=== PATIENT | female | born 1935 | race Caucasian/White ===

== ENCOUNTER 2022-06-11 16:48 | Inpatient (IN) | payer MEDICARE, OTHER ==
[~2022-06-11] VITALS: Ht 165.1 cm; Wt 81.6 kg
[2022-06-11 17:34] LABS: BASOPHILS % (AUTO) 0.3 % (0-1); EOSINOPHILS % (AUTO) 0.1 % (0-6); HEMATOCRIT 35.9 % (35.0-45.0); HEMOGLOBIN 11.8 g/dl (12.0-16.0); LYMPHOCYTES # (AUTO) 2.1 X10'3 (1.1-4.8); LYMPHOCYTES % (AUTO) 17.1 % (21-51); MEAN CORPUSCULAR HEMOGLOBIN 28.4 PG (27.0-31.0); MEAN CORPUSCULAR HGB CONC 32.9 g/dL (33.0-36.5); MEAN CORPUSCULAR VOLUME 86.4 FL (78-98); MEAN PLATELET VOLUME 8.6 FL (7.4-10.4); MONOCYTES # (AUTO) 1.2 X10'3 (0-0.9); MONOCYTES % (AUTO) 9.5 % (2-12); NEUTROPHILS # (AUTO) 9.2 X10'3 (1.8-7.7); PLATELET COUNT 230 X10'3 (140-440); RED BLOOD COUNT 4.16 X10'6 (4.20-5.60); RED CELL DISTRIBUTION WIDTH 14.4 % (11.5-14.5); WHITE BLOOD COUNT 12.6 X10'3 (4.5-11.0)
[2022-06-11 17:47] LABS: APTT 31 SECONDS (22-32)
[2022-06-11 17:50] LABS: ALANINE AMINOTRANSFERASE 62 U/L (12-78); ALBUMIN 3.3 G/DL (3.4-5.0); ALBUMIN/GLOBULIN RATIO 0.8 (1.1-1.5); ALKALINE PHOSPHATASE 89 IU/L (46-116); ANION GAP 10 (8-16); ASPARTATE AMINO TRANSFERASE 124 U/L (10-37); BILIRUBIN,TOTAL 0.6 MG/DL (0.1-1.0); BLOOD UREA NITROGEN 20 MG/DL (7-18); BUN/CREATININE RATIO 18.3 (10.0-20.0); CALCIUM 9.1 MG/DL (8.5-10.1); CHLORIDE 99 MMOL/L (99-107); CREATININE 1.09 MG/DL (0.40-0.90); GLUCOSE 147 MG/DL (70-104); SODIUM 134 MMOL/L (135-145); TOTAL CARBON DIOXIDE 25.2 MMOL/L (24-32); TOTAL PROTEIN 7.2 G/DL (6.4-8.2); eGFR 48 ML/MIN
--- NOTE | 2022-06-11 17:51 | NUR ---
PT ARRIVED WITH HEPARIN GTT, ORDERS FROM DR MALDONADO TO CONTINUE. WHEN THIS RN CAME BACK INTO THE PTS ROOM, PUMP HAD BEEN REMOVED AND PT HAD BEEN TAKEN OFF GTT. NOTIFIED DR MALDONADO WHO WILL PLACE ORDERS TO RESTART HEPARIN GTT
[2022-06-11] MEDS ORDERED: heparin 10,000 units/1 ML INJ IV PRN (17:55)
[2022-06-11] MEDS ORDERED: heparin 10,000 units/1 ML INJ IV ONE ×2 (17:55→18:05)
[2022-06-11] MEDS ORDERED: heparin 25,000 UNIT/250ml bag 250 ML IV PRN (17:55)
[2022-06-11 17:57] LABS: MAGNESIUM 1.5 MG/DL (1.5-2.4)
[2022-06-11] MEDS ORDERED: METF-436 PO (19:34)
[2022-06-11] MEDS ORDERED: ASPI-611 PO (19:34)
[2022-06-11] MEDS ORDERED: METO-395 PO (19:34)
[2022-06-11] MEDS ORDERED: OMEP40CA21 PO (19:34)
[2022-06-11] MEDS ORDERED: LISI40TA13 PO (19:34)
[2022-06-11] MEDS ORDERED: SITA25TA3 PO (19:34)
[2022-06-11] MEDS ORDERED: ATOR40TA71 PO (19:34)
[2022-06-11] MEDS ORDERED: AMLO2.5T2 PO (19:34)
[2022-06-11] MEDS ORDERED: temazepam 15mg capsule PO PRN (21:00)
[2022-06-11] MEDS ORDERED: mag hydrox/Alum hydrox/simeth 30ml oral suspension PO PRN (21:40)
[2022-06-11] MEDS ORDERED: normal saline 1000ml 1,000 ML IV SCH (21:40)
[2022-06-11] MEDS ORDERED: diphenhydrAMINE 50 mg/ml inj IV PRN (21:40)
[2022-06-11] MEDS ORDERED: morphine 2 MG/ML inj. syringe IV PRN ×2 (21:40)
[2022-06-11] MEDS ORDERED: HYDROcodone/acetaminophen 10/325mg tab PO PRN (21:40)
[2022-06-11] MEDS ORDERED: magnesium hydroxide 30ml (MOM) UD suspension PO PRN (21:40)
[2022-06-11] MEDS ORDERED: HYDROcodone/acetaminophen 5mg/325mg tablet PO PRN (21:40)
[2022-06-11] MEDS ORDERED: ondansetron/PF 4mg/2ml inj IV PRN (21:40)
[2022-06-11] MEDS ORDERED: acetaminophen 650mg rectal suppository RC PRN (21:40)
[2022-06-11] MEDS ORDERED: ondansetron 4mg rapidly disintigrating tab PO PRN (21:40)
[2022-06-11] MEDS ORDERED: acetaminophen 325mg tablet PO PRN ×2 (21:40)
[2022-06-11] MEDS ORDERED: bisacodyl 10mg suppository rectal RC PRN (21:40)
[2022-06-11] MEDS ORDERED: diphenhydrAMINE 25mg capsule PO PRN (21:40)
[2022-06-11] MEDS ORDERED: MESSAGE TO PHARMACY PO ONE (21:55)
[2022-06-11] MEDS ORDERED: insulin Lispro (HumaLOG) vial - multi-dose SQ SCH (21:55)
[2022-06-11] MEDS ORDERED: DEXTROSE 15 GM of carb/4 tabs (each vial/BOTTLE has 4 tablets) PO PRN ×2 (21:55)
[2022-06-11] MEDS ORDERED: dextrose 50%-water 50ml dispensing syringe IV PRN ×2 (21:55)
[2022-06-11] MEDS ORDERED: glucagon, human recombinant 1mg kit SUBCUT PRN (21:55)
[2022-06-11 22:16] LABS: D-DIMER 1.05 MG/L FEU (0-0.50)
[2022-06-11 22:17] LABS: HEMOGLOBIN A1C 6.8 % (4.5-6.2)
[2022-06-11 22:24] LABS: PHOSPHORUS 3.8 MG/DL (2.3-4.5)
--- NOTE | 2022-06-11 23:54 | NUR ---
Patient placed on hospital bed for comfort.
[2022-06-12] VITALS (11 sets, daily range): BP systolic 92–110; BP diastolic 45–77
[2022-06-12 01:41] LABS: APTT 52 SECONDS (22-32)
[2022-06-12 03:37] LABS: BASOPHILS # (AUTO) 0.1 X10'3 (0-0.2); BASOPHILS % (AUTO) 0.6 % (0-1); EOSINOPHILS % (AUTO) 0.3 % (0-6); HEMATOCRIT 32.3 % (35.0-45.0); HEMOGLOBIN 10.9 g/dl (12.0-16.0); LYMPHOCYTES % (AUTO) 22.1 % (21-51); MEAN CORPUSCULAR HEMOGLOBIN 28.8 PG (27.0-31.0); MEAN CORPUSCULAR HGB CONC 33.6 g/dL (33.0-36.5); MEAN CORPUSCULAR VOLUME 85.5 FL (78-98); MEAN PLATELET VOLUME 8.8 FL (7.4-10.4); MONOCYTES # (AUTO) 0.9 X10'3 (0-0.9); MONOCYTES % (AUTO) 10.2 % (2-12); NEUTROPHILS % (AUTO) 66.8 % (42-75); PLATELET COUNT 203 X10'3 (140-440); RED BLOOD COUNT 3.78 X10'6 (4.20-5.60)
[2022-06-12 03:50] LABS: ALANINE AMINOTRANSFERASE 51 U/L (12-78); ALBUMIN 2.8 G/DL (3.4-5.0); ALBUMIN/GLOBULIN RATIO 0.8 (1.1-1.5); ALKALINE PHOSPHATASE 76 IU/L (46-116); ANION GAP 7 (8-16); ASPARTATE AMINO TRANSFERASE 99 U/L (10-37); BILIRUBIN,TOTAL 0.6 MG/DL (0.1-1.0); BLOOD UREA NITROGEN 17 MG/DL (7-18); CALCIUM 8.6 MG/DL (8.5-10.1); CHLORIDE 102 MMOL/L (99-107); CHOLESTEROL 114 MG/DL (0-200); CREATININE 1.06 MG/DL (0.40-0.90); GLUCOSE 136 MG/DL (70-104); HDL CHOLESTEROL 56 MG/DL (35-60); LDL CHOLESTEROL 47 MG/DL (50-100); POTASSIUM 3.6 MMOL/L (3.5-5.1); SODIUM 135 MMOL/L (135-145); TOTAL CARBON DIOXIDE 25.9 MMOL/L (24-32); TOTAL PROTEIN 6.3 G/DL (6.4-8.2); TRIGLYCERIDES 79 MG/DL (20-135); eGFR 49 ML/MIN
--- NOTE | 2022-06-12 07:36 | NUR ---
REPORT GIVEN TO ROCIO KWOK
[2022-06-12] MEDS: pantoprazole 40mg Tablet.DR PO SCH (07:58)
[2022-06-12] MEDS: docusate sod 100mg capsule PO SCH ×2 (07:58→19:21)
[2022-06-12] MEDS: metoprolol succinate 25mg (24-HOUR) SR. Tablet PO SCH (07:59)
[2022-06-12] MEDS: atorvastatin 20mg tablet PO SCH (07:59)
[2022-06-12] MEDS: aspirin 81mg, enteric-coated 1 TAB TABLET.DR PO SCH (08:00)
[2022-06-12] MEDS ORDERED: amLODIPine 2.5mg tablet PO SCH (08:00)
[2022-06-12] MEDS: lisinopril 20mg tablet PO SCH (09:13)
[2022-06-12 10:43] LABS: APTT 49 SECONDS (22-32)
[2022-06-12] MEDS ORDERED: nitroGLYCERIN-Tridil 50MG/D5W 250 ML IV ONE (10:43)
[2022-06-12] MEDS ORDERED: verapamil 2.5 mg/ml inj IV ONE (10:43)
[2022-06-12] MEDS ORDERED: LIDOcaine 1% (10mg/ml) 2ml vial ONE (10:43)
[2022-06-12] MEDS ORDERED: iohexol 350MG/ML 100ml bottle IV ONE (10:43)
[2022-06-12] MEDS ORDERED: midazolam 1 mg/ML 2ml injection ONE (10:43)
[2022-06-12] MEDS ORDERED: heparin 1,000unit/ml 10ml vial 10 ML ONE (10:43)
[2022-06-12] MEDS ORDERED: fentaNYL/PF 50MCG/1 ML 2ML syringe ONE (10:43)
--- NOTE | 2022-06-12 10:55 | NUR ---
Pt back from laboratory engineer, Arterial band in place. Pt no distress. Lunch provided. Call light in reach.
[2022-06-12] MEDS ORDERED: ticagrelor 90mg tablet PO ONE (11:40)
--- NOTE | 2022-06-12 12:00 | NUR ---
PAGER ID: [phone] MESSAGE: [phone] Enrico Rito from [employer] Professor. No intervention. Can I order carb control Diet. Pt days w/o food. Alina MCCLURE #[id number] Addendum: 06/12/22 at 1446 by Alina Almonte RN [facility] not [id number]
[2022-06-12] MEDS: ticagrelor 90mg tablet PO SCH (12:31)
--- NOTE | 2022-06-12 18:20 | NUR ---
Problems reprioritized. Patient report given, questions answered & plan of care reviewed with Perry KWOK.Bedside report completed.watching TV.. Addendum: 06/12/22 at 1821 by Alina Almonte RN Amended: Links added.
[2022-06-12] MEDS ORDERED: ticagrelor 90mg tablet PO SCH (20:00)
[2022-06-13 02:00] VITALS: BP 99/60
--- NOTE | 2022-06-13 06:51 | NUR ---
Patient in room [facility] 3014. I have received report from and had the opportunity to ask questions and assume patient care. all questions answered. received report from nicole de Addendum: 06/13/22 at 0658 by Radha Ferraro RN Amended: Links added.
[2022-06-13 06:59] VITALS: BP 126/54
[2022-06-13 07:05] LABS: ALANINE AMINOTRANSFERASE 54 U/L (12-78); ALBUMIN 3.3 G/DL (3.4-5.0); ALBUMIN/GLOBULIN RATIO 0.8 (1.1-1.5); ALKALINE PHOSPHATASE 88 IU/L (46-116); ANION GAP 10 (8-16); ASPARTATE AMINO TRANSFERASE 79 U/L (10-37); BILIRUBIN,TOTAL 0.8 MG/DL (0.1-1.0); BLOOD UREA NITROGEN 18 MG/DL (7-18); BUN/CREATININE RATIO 15.5 (10.0-20.0); CHLORIDE 105 MMOL/L (99-107); CREATININE 1.16 MG/DL (0.40-0.90); GLUCOSE 144 MG/DL (70-104); POTASSIUM 3.6 MMOL/L (3.5-5.1); SODIUM 141 MMOL/L (135-145); TOTAL CARBON DIOXIDE 25.6 MMOL/L (24-32); TOTAL PROTEIN 7.5 G/DL (6.4-8.2); WHITE BLOOD COUNT 7.3 X10'3 (4.5-11.0); eGFR 45 ML/MIN
[2022-06-13 07:06] LABS: BASOPHILS % (AUTO) 0.5 % (0-1); EOSINOPHILS # (AUTO) 0.1 X10'3 (0-0.9); EOSINOPHILS % (AUTO) 1.2 % (0-6); HEMATOCRIT 37.2 % (35.0-45.0); HEMOGLOBIN 12.3 g/dl (12.0-16.0); LYMPHOCYTES # (AUTO) 1.9 X10'3 (1.1-4.8); LYMPHOCYTES % (AUTO) 26.3 % (21-51); MEAN CORPUSCULAR HEMOGLOBIN 28.6 PG (27.0-31.0); MEAN CORPUSCULAR HGB CONC 33.1 g/dL (33.0-36.5); MEAN CORPUSCULAR VOLUME 86.5 FL (78-98); MEAN PLATELET VOLUME 8.8 FL (7.4-10.4); MONOCYTES # (AUTO) 0.8 X10'3 (0-0.9); MONOCYTES % (AUTO) 11.5 % (2-12); NEUTROPHILS # (AUTO) 4.4 X10'3 (1.8-7.7); NEUTROPHILS % (AUTO) 60.5 % (42-75); PLATELET COUNT 234 X10'3 (140-440); RED CELL DISTRIBUTION WIDTH 14.1 % (11.5-14.5)
--- NOTE | 2022-06-13 08:14 | NUR ---
pt disconnected ivf from her arm. states she doesnt care if she isnt supposed to do that, she wants to go home will not reattach as pt is refusing
[2022-06-13] MEDS: atorvastatin 20mg tablet PO SCH (10:19)
[2022-06-13] MEDS: lisinopril 20mg tablet PO SCH (10:19)
[2022-06-13] MEDS: ticagrelor 90mg tablet PO SCH ×2 (10:21→15:29)
[2022-06-13] MEDS: docusate sod 100mg capsule PO SCH (10:21)
[2022-06-13] MEDS: pantoprazole 40mg Tablet.DR PO SCH (10:22)
[2022-06-13] MEDS: aspirin 81mg, enteric-coated 1 TAB TABLET.DR PO SCH (10:24)
[2022-06-13] MEDS: metoprolol succinate 25mg (24-HOUR) SR. Tablet PO SCH (10:24)
[2022-06-13] MEDS ORDERED: TICA90TA PO (11:49)
[2022-06-13 12:34] VITALS: BP 111/59
--- NOTE | 2022-06-13 16:49 | NUR ---
pt discharged to home. family member drove from [place] to pick her up. brillinta prescription sent to [facility] in [place]. spoke with pharmacist, who is filling the prescription. pt has double insurance and she was given a brillinta coupon. pt given her evening dose of brillinta before leaving the hospital today. 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 educated patient on the importance of taking brillinta as prescribed and not missing any doses. pt left alert and oriented x3 vss, ambulatory without any side effects. left via wheelchair from the floor
[2022-06-14] MEDS ORDERED: metFORMIN 500mg tablet PO SCH (20:00)
== END 2022-06-13 15:35 | disposition home or self-care (01) | DRG 280 ==
LOC: ER 16:49 → ED HOLD 21:52 → PCU 3S 06-12 08:43
PROVIDERS: ADMIT Family Medicine; ATTEND Internal Medicine
PROC: 4A023N7 Measurement of Cardiac Sampling and Pressure, Left Heart, Percutaneous Approach (ICD-10-PCS; principal; 2022-06-12)
PROC: B2111ZZ Fluoroscopy of Multiple Coronary Arteries using Low Osmolar Contrast (ICD-10-PCS; 2022-06-12)
DX: I21.4 Non-ST elevation (NSTEMI) myocardial infarction (principal); I50.33 Acute on chronic diastolic (congestive) heart failure; I13.0 Hypertensive heart and chronic kidney disease with heart failure and stage 1 through stage 4 chronic kidney disease, or unspecified chronic kidney disease; I25.10 Atherosclerotic heart disease of native coronary artery without angina pectoris; E78.5 Hyperlipidemia, unspecified; E11.22 Type 2 diabetes mellitus with diabetic chronic kidney disease; E11.65 Type 2 diabetes mellitus with hyperglycemia; K21.9 Gastro-esophageal reflux disease without esophagitis; N18.9 Chronic kidney disease, unspecified; Z88.8 Allergy status to other drugs, medicaments and biological substances; Z95.2 Presence of prosthetic heart valve; Z79.899 Other long term (current) drug therapy; Z79.82 Long term (current) use of aspirin
CPT/HCPCS: 36415; 71045; 80053; 80061; 82948; 83036; 83690; 83735; 83880; 84100; 84443; 84484; 85025; 85379; 85610; 85730; 87811; 93005; 93458; 96365; 96376; 99152; 99285; A6258; A6449; C1894; G0378; J1644; J1815; J2250; J3010; J3490; J7030; Q9967